=== PATIENT | male | born 1975 | race Caucasian/White ===

== ENCOUNTER → 2023-07-12 | Outpatient (CLI) | payer MEDICAID ==
--- NOTE | 2023-07-12 19:38 | XRAY Report ---
PROCEDURE: Lumbar Spine 2 View INDICATIONS: LOW BACK PAIN TECHNIQUE: 3 views of the lumbar spine were acquired. COMPARISON: None. FINDINGS: Bones: 5 [id number] vertebrae are present. No acute fracture or traumatic subluxation. Vertebra l body height is maintained. Mild disc height loss and facet arthropathy at L5-S1. Small anteroinferi or osteophytes at T12 and L1. Soft tissues: Overlying bowel gas pattern is normal. No suspicious soft tissue calcifications. IMPRESSION: 1.No acute fracture or traumatic subluxation of the lumbar spine. If symptoms persist, consider CT or MRI for further evaluation. 2.Mild degenerative changes at L5-S1. Reviewed by: Jo-Ann Ocampo MD on 07/12/2023 7:37 PM PST Approved by: Jo-Ann Ocampo MD on 07/12/2023 7:37 PM PST Station ID: [id number]
== END ==
LOC: DI.N 15:13
PROVIDERS: ATTEND Physician Assistant Medical
DX: M47.817 Spondylosis without myelopathy or radiculopathy, lumbosacral region (principal)